=== PATIENT | male | born 1950 | race Caucasian/White ===

== ENCOUNTER → 2019-11-24 09:53 | Outpatient (CLI) | payer MEDICARE, SELFPAY ==
--- NOTE | 2019-11-24 | DI.NM.S_ITS ---
PROCEDURE: NM HUONG PERF SPECT REST & STR Rest and exercise myocardial perfusion SPECT with gated imaging and ejection fraction RADIOPHARMACEUTICAL: 12.9 mCi Tc-99m sestamibi IV at rest and 26.1 mCi Tc-99m sestamibi IV at peak exercise. A one day-protocol was performed. INDICATIONS: Atherosclerotic heart disease of [place] coronary TECHNIQUE: Radiopharmaceutical was injected at peak stress test, and also at rest. SPECT images were obtained. SPECT myocardial perfusion images were displayed in short axis, horizontal long axis, and vertical long axis views. Gated images were reviewed using [employer] software. COMPARISON: None. CARDIAC STRESS: A standard Rodrigo treadmill exercise tolerance test was performed by the patient under the supervision of an attending staff. The patient exercised for 9 minutes and 1 seconds; functional aerobic impairment (RAVEN) is -18%. Hemodynamic data: There is normal blood pressure and heart rate response to exercise stress. Patient achieved 93% of maximum predicted heart rate at peak exercise. Symptoms: Patient denied chest pain during exercise. EKG: No diagnostic EKG changes of ischemia; frequent PACs and frequent PVCs during the exercise and recovery. FINDINGS: Raw data: There is good myocardial labeling by radiotracer. No significant motion artifacts. Noar-bc-kuktm ratio is 0.39 (normal is less than 0.38 for sestamibi tracer, and less than 0.50 for thallium tracer). Left ventricle function: Gated images demonstrate normal left ventricle wall thickening. No segmental wall motion abnormality. No transient ischemic dilation; TID is 0.93 (normal less than 1.3). The left ventricle resting end-diastolic volume is 158 mL. Left ventricle stress ejection fraction is 60%; normal values are above 45%. Myocardial perfusion: There is a severe fixed apical defect that resolves with prone imaging suggesting artifact than true ischemia or infarction. There is a mildly intense defect in the distal anterior wall and the entire inferior wall at rest that improves with stress and resolves on prone imaging, suggesting artifact than true ischemia or infarction.. IMPRESSION: low risk, probably normal nuclear stress test 1) No perfusion evidence of ischemia or infarction. There is a severe fixed apical defect that resolves with prone imaging suggesting artifact than true ischemia or infarction. There is a mildly intense defect in the distal anterior wall and the entire inferior wall at rest that improves with stress and resolves on prone imaging, suggesting artifact than true ischemia or infarction.. 2) Upper normal left ventricular size with normal wall motion and normal systolic function (EF post stress 60%). 3) No ECG evidence of ischemia. Frequent PACs and frequent PVCs noted during recovery. 4) No angina during the study. 5) Good exercise tolerance (10.1 METs, RAVEN -18%). Target heart rate achieved. Hypertension at rest (BP 140/90mmHg) and appropriate BP response to exercise. 6) No prior nuclear stress test available for comparison. Dictated by: Mari Delgado MD on 11/25/2019 at 12:59 Approved by: Mari Delgado MD on 11/25/2019 at 13:06
--- NOTE | 2019-11-24 13:43 | DI.ECHO.S_ITS ---
Echocardiogram Report + + :Name: CHLOE VERMA Study Date: 11/24/2019 Height: 73 in : :[facility] Weight: 220 lb : : Gender: Male BSA: 2.2 m2 : :: 1950 Age: 69 yrs BP: 144/96 mmHg: :Reason For Study: ATHEROSCLEROTIC HEART DISEASE : : Performed By: Daniela Mcghee : :Referring: TRUDI CAICEDO : + + Interpretation Summary The ejection fraction is estimated to be 60-65%. There is mild aortic regurgitation. The right ventricular systolic pressure is estimated to be at least 24 mmHg based on an estimated right atrial pressure of 3 mm Hg. The ascending aorta is mildly enlarged. Procedure: A two-dimensional transthoracic echocardiogram with color flow and Doppler was performed. The study quality was technically adequate. There is no prior echocardiogram noted for this patient. The patient had frequent PVCs during the exam. The patient had occasional PACs during the exam. Left Ventricle: Left ventricular size is at the upper limits of normal. There is normal left ventricular wall thickness. There is no ventricular septal defect visualized. The ejection fraction is estimated to be 60-65%. There are no focal wall motion abnormalities. Diastolic parameters suggest probable normal left ventricular diastolic function and normal filling pressures. Right Ventricle: The right ventricle is at the upper limits of normal in size. The right ventricular systolic function is normal. Atria: The left atrium is moderately dilated. The right atrium is mildly dilated. There is no Doppler evidence for an interatrial shunt. Mitral Valve: The mitral valve is normal in structure and function. There is trace mitral regurgitation. Aortic Valve: The aortic valve is trileaflet. The aortic valve opens well. There is mild aortic regurgitation. Tricuspid Valve: The tricuspid valve is normal in structure and function. There is a trace or physiologic amount of tricuspid regurgitation. The right ventricular systolic pressure is estimated to be at least 24 mmHg based on an estimated right atrial pressure of 3 mm Hg. Pulmonic Valve: The pulmonic valve is normal in structure and function. There is a trace or physiologic amount of pulmonic regurgitation. Great Vessels: The aortic root is normal size. The ascending aorta is mildly enlarged. The aortic arch is normal in size. The pulmonary artery is normal size. The pulmonary artery branches are grossly normal. The IVC is of normal diameter and collapses greater than 50% with a sniff. This suggests a low right atrial pressure of 3 mm Hg. Pericardium/ Pleura There is no pericardial effusion. MMode/2D Measurements & Calculations LVIDd: 5.7 cm LVOT diam: 2.4 cm LVIDs: 3.8 cm Ao root diam: 3.8 cm FS: 32.1 % Aortic Jxn: 3.1 cm EPSS: 0.74 cm asc Aorta Diam: 4.1 cm IVSd: 1.00 cm Ao Arch Diam (Prox Trans): 3.2 cm LVPWd: 0.89 cm LV robles. diameter/BSA (cm/m^2): 2.5 LV sys. diameter/BSA (cm/m^2): 1.7 LA A2 area: 25.6 cm2 RA long axis: 6.5 cm LA A4 area: 29.7 cm2 RA area: 24.2 cm2 LA length (vol): 6.6 cm RA vol: 76.9 ml LA vol: 97.9 ml RA : 34.3 ml/m2 LA vol index: 43.7 ml/m2 IVC diam: 1.4 cm RVD1 (basal): 4.2 cm RVD2 (mid): 3.3 cm TAPSE: 2.6 cm Doppler Measurements & Calculations Ao V2 max: 144.5 cm/sec LVOT Max Luis: 82.3 cm/sec Ao V2 mean: 94.1 cm/sec LV V1 max P.7 mmHg Ao max P.4 mmHg LV V1 VTI: 20.3 cm Ao mean P.9 mmHg KIKE(I,D): 2.9 cm2 Ao V2 VTI: 32.5 cm KIKE(V,D): 2.7 cm2 sev ratio: 0.63 KIKE indexed to BSA (cm^2/m^2): 1.3 AI P1/2t: 831.4 msec AI dec slope: 181.2 cm/sec2 MV E max luis: 53.2 cm/sec TR max luis: 227.5 cm/sec MV A max luis: 47.4 cm/sec TR max P.7 mmHg MV E/A: 1.1 PA V2 max: 85.2 cm/sec Med Peak E' Luis: 4.0 cm/sec PA V2 mean: 59.0 cm/sec E/E' med: 13.2 PA mean P.5 mmHg Lat Peak E' Luis: 7.8 cm/sec PA Accel Time: 0.10 sec E/E' lat: 6.8 E/e' average: 10.0 MV dec time: 0.27 sec SV(LVOT): 95.7 ml Reading Physician:11:[id number] AM
--- NOTE | 2019-11-24 15:53 | PM.TREADMILL ---
Cardiac Stress Test Report Referral & Results Date Patient Seen: 11/24/19 Time Patient Seen: 15:53 Requesting provider: Karen Layne Indication: CAD Rest ECG: ns Procedure Note: 1. standard deena protocol 9:01 min 9.7 METS. Good exercise capacity, RAVEN -18%. Normal hemodynamic response to exercise, hypertensive at baseline. No chest pain or anginal symptoms. Resting EKG SR, ST depression up to 1 mm in V4-5 at peak exercise. frequent PVCs and PACs Impression: Normal exercise stress test Please note: Actual ECG tracings can be found in the PACS system.
== END ==
PROVIDERS: PCP Nurse Practitioner Family; Referring Provider Nurse Practitioner Family; Visit Provider Nurse Practitioner Family
DX: I35.1 Nonrheumatic aortic (valve) insufficiency (principal); I77.89 Other specified disorders of arteries and arterioles; I25.10 Atherosclerotic heart disease of native coronary artery without angina pectoris
CPT/HCPCS: 78452; 93017; 93306; A9502